=== PATIENT | female | born 1970 | race Caucasian/White ===

== ENCOUNTER 2021-11-14 20:32 | Emergency (ER) | payer MEDICARE, OTHER ==
[~2021-11-14] VITALS: Ht 154.9 cm; Wt 57.3 kg
[2021-11-14] MEDS ORDERED: ONDANSETRON HCL 4MG/2ML INJ IV STA (21:37)
[2021-11-14] MEDS ORDERED: KETOROLAC 30MG/ML VIAL IV STA (21:37)
[2021-11-14] MEDS ORDERED: SODIUM CHLORIDE 0.9% 1,000 ML IV ONE (21:45)
[2021-11-14 23:24] LABS: CHLORIDE 109 mEq/L (98-107)
[2021-11-14 23:29] LABS: HEMATOCRIT. 43.1 % (36.0-48.0); HEMOGLOBIN. 14.1 g/dL (12.0-16.0); MEAN CORPUSCULAR HEMOGLOBIN 30.8 pg (28.0-32.0); MEAN CORPUSCULAR VOLUME 94.2 fL (81.0-99.0); RED BLOOD CELL COUNT 4.57 mill/uL (4.2-5.4); RED CELL DISTRIBUTION WIDTH 14.8 % (11.6-14.6)
[2021-11-14 23:38] LABS: HCG SCREEN NEGATIVE
[2021-11-15 00:22] LABS: MEAN PLATELET VOLUME 8.3 fl (7.4-10.4); PLATELET 213 x1000/uL (130-400)
[2021-11-15 00:32] LABS: PLATELET ESTIMATE NORMAL
[2021-11-15 00:51] LABS: CLARITY URINE CLOUDY (CLEAR); COLOR URINE ORANGE (YELLOW); KETONES URINE NEGATIVE (NEGATIVE); LEUKOCYTE ESTERASE URINE 2+ (NEGATIVE); NITRITE URINE NEGATIVE (NEGATIVE); OCCULT BLOOD URINE 3+ (NEGATIVE); PROTEIN URINE 2+ (NEGATIVE); SPECIFIC GRAVITY URINE 1.023 (1.005-1.030); UROBILINOGEN URINE 0.2 E.U./dL (0.2-1.0)
[2021-11-15] MEDS ORDERED: LEVO250T43 MT (01:32)
[2021-11-15 04:00] VITALS: BP 117/79
== END 2021-11-15 05:45 | disposition home or self-care (01) ==
LOC: ER 20:32
DX: R10.33 Periumbilical pain (principal); N39.0 Urinary tract infection, site not specified; N93.8 Other specified abnormal uterine and vaginal bleeding; K52.9 Noninfective gastroenteritis and colitis, unspecified; Z88.0 Allergy status to penicillin; Z88.2 Allergy status to sulfonamides
CPT/HCPCS: 36415; 74176; 80053; 81003; 83690; 84703; 85025; 87086; 96374; 96375; 99285; C1893; J1885; J2405; J7030